=== PATIENT | male | born 1975 | race Caucasian/White ===

== ENCOUNTER 2023-03-16 16:28 | Emergency (ER) | payer OTHER, SELFPAY ==
[2023-03-16] VITALS (10 sets, daily range): BP systolic 134; BP diastolic 86; PULSE 47–61; RESP 14–22; TEMP 36.2; O2SAT 80–100; BMI 23.7
--- NOTE | 2023-03-16 16:40 | ECG_ITS ---
[facility] Test Date: 2023-03-16 Pat Name: RADHA WATSON Department: Room: - Gender: Male [employer] Supervisor: : 1975 Requested By: Order Number: [id number] Reading MD: ARLET ACEVEDO Measurements Intervals [place] Rate: 52 P: 79 [place]: 140 QRS: 78 QRSD: 108 T: 75 QT: 420 QTc: 400 Interpretive Statements 1100 Sinus rhythm 2440 Incomplete right bundle branch block 9130 borderline ECG No previous ECG available for comparison Electronically Signed On 03-17-2023 18:13:17 EDT by ARLET ACEVEDO
--- NOTE | 2023-03-16 16:41 | ED_ITS ---
HPI - Chest Pain General Chief Complaint: Chest Pain Stated Complaint: CHEST PAIN Time Seen by Provider: 03/16/23 16:36 Source: patient and family Mode of arrival: walk-in Limitations: no limitations History of Present Illness HPI narrative: patient is a 48-year-old male who presents to the emergency department for the evaluation of chest pain. Patient states he had chest pain approximately three weeks ago which resolved. He states the pain returned five days ago and has been coming and going since then. He has no active chest pain at this time. He states since the pain began, he has felt exertional dyspnea but has not had any fevers, cough, congestion. He has had no abdominal pain, nausea, vomiting. Steve denies any peripheral edema. He has never been a smoker. He is an active runner. He denies any family history of coronary artery disease. He takes no medications for high cholesterol, diabetes or hypertension. He has no history of heart or lung problems other than childhood asthma which he does not take any medications for now. when pain is present is located in the right anterior chest. Risk Factors Coronary artery disease risk factors: none Related Data Home Medications Medication Instructions Recorded Confirmed No Known Home Medications 03/16/23 03/16/23 Allergies Allergy/AdvReac Type Severity Reaction Status Date / Time No Known Drug Allergies Allergy Verified 03/16/23 16:34 Review of Systems ROS Constitutional Denies: fever or chills Ears, nose, mouth, and throat Denies: throat pain or neck pain Cardiovascular Reports: chest pain Respiratory Reports: shortness of breath; Denies: cough Gastrointestinal Denies: abdominal pain, nausea or vomiting Musculoskeletal Denies: back pain or neck pain Integumentary/Breast Denies: rash Neurological Denies: headache Endocrine Denies: excessive urination Hematologic/Lymphatic Denies: easy bruising PFSH PFS Social History Smoking status: Never smoker Exam Narrative Exam Narrative: Gen.: Awake, alert, in no distress Head: Normocephalic, atraumatic ENT: Moist mucous membranes Respiratory: No respiratory distress, lungs clear bilaterally Cardio: Regular rate and rhythm Gastrointestinal: Abdomen is soft, nondistended and nontender to palpation Extremities: Moves extremities equally, no injuries noted Psych: Normal mood and affect Neuro: No focal neuro deficit Skin: Warm, dry, intact Constitutional Vital Signs, click to edit/add: Last Vital Signs Temp 97.2 F L 03/16/23 16:32 Pulse 61 03/16/23 16:32 Resp 16 03/16/23 16:32 BP 134/86 03/16/23 16:32 Pulse Ox 99 03/16/23 16:48 O2 Del Method Room Air 03/16/23 16:48 Course Vital Signs Vital signs: Vital Signs Temperature 97.2 F L 03/16/23 16:32 Pulse Rate 61 03/16/23 16:32 Respiratory Rate 16 03/16/23 16:32 Blood Pressure 134/86 03/16/23 16:32 Pulse Oximetry 100 03/16/23 16:32 Oxygen Delivery Method Room Air 03/16/23 16:32 Temperature 97.2 F L 03/16/23 16:32 Pulse Rate 61 03/16/23 16:32 Respiratory Rate 16 03/16/23 16:32 Blood Pressure 134/86 03/16/23 16:32 Pulse Oximetry 99 03/16/23 16:48 Oxygen Delivery Method Room Air 03/16/23 16:48 MDM - Chest Pain MDM Narrative Medical decision making narrative: patient was medicated with aspirin as a precaution although he has no active chest pain, shortness of breath or other focal medical complaints in the Emergency Room. EKG with no acute changes and lab studies including troponin, BNP and d-dimer are within normal limits. Chest x-ray shows no evidence of acute cardiopulmonary changes. Heart score is a one based on the patient's risk factor of his age, he has no other cardiac risk factors. He was noted to have int ermittent bradycardia in the Emergency Room but he has an active runner, no other associated symptoms with the bradycardia. He will be referred to new primary care provider for further evaluation and treatment. Return to the Emergency Room if symptoms change or worsen. Medical Records Data Attestation: I reviewed the patient's medical records. Lab Data Attestation: I reviewed the patient's lab results. Labs: Lab Results 03/16/23 Range/Units 16:40 WBC 7.8 (4.0-11.0) 10^3/uL RBC 5.31 (4.70-6.10) 10^6/uL Hgb 15.4 (14.0-18.0) g/dL Hct 44.9 (42.0-54.0) % MCV 84.6 (80.0-94.0) fL MCH 29.0 (25.9-34.0) pg MCHC 34.3 (29.9-35.2) g/dL RDW 12.0 (11.0-15.0) % Plt Count 160 (150-450) 10^3/uL MPV 10.9 (9.5-13.5) fL Neut % (Auto) 69.1 (43.0-75.0) % Lymph % (Auto) 22.4 (20.5-60.0) % [place] % (Auto) 6.9 (1.7-12.0) % Eos % (Auto) 0.8 L (0.9-7.0) % Baso % (Auto) 0.5 (0.2-2.0) % Neut # (Auto) 5.4 (1.4-6.5) 10^3/uL Lymph # (Auto) 1.7 (1.2-3.8) 10^3/uL [place] # (Auto) 0.5 (0.3-0.8) 10^3/uL Eos # (Auto) 0.1 (0.0-0.7) 10^3/uL Baso # (Auto) 0.0 (0.0-0.1) 10^3/uL Abs Immat Gran (auto) 0.02 (0.00-0.03) 10^3/uL Imm/Tot Granulo (auto) 0.3 (0.0-0.5) % PT 11.0 (9.0-11.6) sec INR 1.04 APTT 28.9 (22.3-36.2) sec D-Dimer 0.30 (<=0.59) mg/L FEU Sodium 139 (136-145) mmol/L Potassium 3.5 (3.5-5.1) mmol/L Chloride 104 (98-107) mmol/L Carbon Dioxide 31.7 (21.0-32.0) mmol/L Anion Gap 6.8 BUN 20.0 H (7.0-18.0) mg/dL Creatinine 1.15 (0.70-1.30) mg/dL Est GFR ( Amer) >60 (>=60) Est GFR (Non-Af Amer) >60 (>=60) BUN/Creatinine Ratio 17.4 Glucose 95 (74-106) mg/dL Calcium 8.9 (8.5-10.1) mg/dL Total Bilirubin 0.8 (0.2-1.0) mg/dL AST 21 (15-37) U/L ALT 34 (16-63) U/L Alkaline Phosphatase 66 (46-116) U/L Troponin I High Sens 6.8 (4.0-76.1) pg/mL NT-Pro-B Natriuret Pep 35.0 (<=450.0) pg/mL Total Protein 7.1 (6.4-8.2) g/dL Albumin 4.1 (3.4-5.0) g/dL Globulin 3.0 g/dL Albumin/Globulin Ratio 1.4 Lipase 83.0 (73.0-393.0) U/L Imaging Data Chest x-ray: Attestation: I have reviewed the pertinent imaging results. Radiologist's impression: Procedure: XR chest 1V TITLE: XR chest 1V COMPARISON: None. CLINICAL HISTORY: Chest pain TECHNIQUE: One view. FINDINGS: There is a normal cardiac and mediastinal contour. The pulmonary vascular pattern is normal. The lungs are clear and the pleural margins are sharp. There are no significant skeletal abnormalities. IMPRESSION: NO ACUTE RADIOGRAPHIC FINDINGS ECG Data Attestation: I personally reviewed and interpreted this ECG as follows: (normal sinus rhythm at a rate of fifty-two, incomplete right bundle-branch block with no acute ST elevation or ectopy. EKG reviewed by attending physician) ECG interpretation date: 03/16/23 ECG interpretation time: 16:43 Heart Score History: Slightly/Non-Suspicious ECG: Normal Age: >45-<65 years Risk Factors: No Risk Factors Troponin: <Normal Limit Total Heart Score Recommendations & Risks:: 1 Discharge Plan Discharge Chief Complaint: Chest Pain Clinical Impression: Chest pain Patient Disposition: Home, Self-Care Time of Disposition Decision: 17:48 Condition: Good Prescriptions / Home Meds: No Action No Known Home Medications Instructions: Chest Pain (ED) Stand Alone Forms: Portal Instructions Referrals: Physician,Non-Staff, MD [Primary Care Provider] - 1 week
[2023-03-16] MEDS: ASPIRIN 81 MG TAB.CHEW 162 MG PO (16:50)
[2023-03-16 16:51] LABS: Basophils Percent Auto 0.5 % (0.2-2.0); Eosinophils Absolute Auto 0.1 10^3/uL (0.0-0.7); Eosinophils Percent Auto 0.8 % (0.9-7.0); Hematocrit 44.9 % (42.0-54.0); Hemoglobin 15.4 g/dL (14.0-18.0); Immature Granulocytes Abs Auto 0.02 10^3/uL (0.00-0.03); Immature Granulocytes Pct Auto 0.3 % (0.0-0.5); Lymphocytes Absolute Auto 1.7 10^3/uL (1.2-3.8); Lymphocytes Percent Auto 22.4 % (20.5-60.0); Mean Corpuscular HGB Conc 34.3 g/dL (29.9-35.2); Mean Corpuscular Volume 84.6 fL (80.0-94.0); Mean Platelet Volume 10.9 fL (9.5-13.5); Monocytes Absolute Auto 0.5 10^3/uL (0.3-0.8); Monocytes Percent Auto 6.9 % (1.7-12.0); Neutrophils Absolute Auto 5.4 10^3/uL (1.4-6.5); Neutrophils Percent Auto 69.1 % (43.0-75.0); Platelet Count 160 10^3/uL (150-450); Red Blood Count 5.31 10^6/uL (4.70-6.10); White Blood Count 7.8 10^3/uL (4.0-11.0)
[2023-03-16 17:06] LABS: INR 1.04; Partial Thromboplastin Time 28.9 sec (22.3-36.2)
--- NOTE | 2023-03-16 17:13 | XR_ITS ---
[address] [address] Patient Name: RADHA WATSON MRN: [id number] date: 1975 Sex: M Assigned Patient Location: ER Current Patient Location: ER Accession/Order Number: [id number] Exam Date: 03/16/2023 17:25 Report Date: 03/16/2023 17:42 At the request of: JOSSE CHAUDHRY Procedure: XR chest 1V TITLE: XR chest 1V COMPARISON: None. CLINICAL HISTORY: Chest pain TECHNIQUE: One view. FINDINGS: There is a normal cardiac and mediastinal contour. The pulmonary vascular pattern is normal. The lungs are clear and the pleural margins are sharp. There are no significant skeletal abnormalities. XR/XR chest 1V IMPRESSION: NO ACUTE RADIOGRAPHIC FINDINGS Electronically authenticated by: LEIF MOHAN Date: 03/16/2023 17:42
[2023-03-16 17:14] LABS: Alanine Aminotransferase 34 U/L (16-63); Albumin Globulin Ratio 1.4; Albumin Level 4.1 g/dL (3.4-5.0); Alkaline Phosphatase 66 U/L (46-116); Anion Gap 6.8; Aspartate Amino Transferase 21 U/L (15-37); BUN Creatinine Ratio 17.4; Bilirubin Total 0.8 mg/dL (0.2-1.0); Calcium 8.9 mg/dL (8.5-10.1); Carbon Dioxide 31.7 mmol/L (21.0-32.0); Chloride 104 mmol/L (98-107); Estimated GFR (African America >60 (>=60); Estimated GFR (Non-African Ame >60 (>=60); Glucose 95 mg/dL (74-106); Potassium 3.5 mmol/L (3.5-5.1); Sodium 139 mmol/L (136-145); Total Protein 7.1 g/dL (6.4-8.2); Troponin I High Sensitivity 6.8 pg/mL (4.0-76.1)
== END 2023-03-16 18:06 | disposition home or self-care (01) ==
PROVIDERS: Physician Assistant; Emergency Provider Emergency Medicine Emergency Medical Services
DX: R07.9 Chest pain, unspecified (principal)
CPT/HCPCS: 36415; 71045; 80053; 83690; 83880; 84484; 85025; 85378; 85610; 85730; 93005; 99285

== ENCOUNTER 2023-05-21 07:32 | Outpatient (OUT) | payer OTHER, SELFPAY ==
--- NOTE | 2023-05-21 17:41 | PM.STRESS ---
Stress Test Stress Test Allergies Allergy/AdvReac Type Severity Reaction Status Date / Time No Known Drug Allergies Allergy Verified 03/16/23 16:34 Requesting physician: KIERAN MILLIGAN Stress Test: Requesting physician: KIERAN MILLIGAN Procedure: Exercise stress test General Information: Reason for Stress Test: Chest pain Cardiac History and Risk Factors: No personal or family risk factors reported Resting 12 - Lead Electrocardiogram: Rate & rhythm: Sinus bradycardia at a rate of 49. [place]: Normal T-waves: Flattened/inverted in aVL ST-segments: Normal orientation Incomplete right bundle branch block Stress Test: Protocol: Frank protocol was followed. Exercise capacity: Excellent exercise capacity. Total exercise time of 10minutes 15 seconds reached Frank stage 4 at 4.2MPH, 16% grade, & 13.4 METs. Blood pressure: Initial: 112/78, Maximum: 150/82, Recovery: 128/74 Rate & rhythm: Patient remained in sinus rhythm during the exercise and recovery portions of the study.? The maximum heart rate was 176, which was 102% of the maximum predicted heart rate 172. Occasional PACs noted. ST-segments & T-waves: The patient developed up to 2mm ST segment depression and downsloping in all 3 inferior leads as well as lateral V3-V6 leads. They resolved during rest. Patient response/symptoms: There were no symptoms similar to the chief complaint. Interpretation: This is an abnormal exercise stress test based on ST segment downsloping and up to 2mm depression in the inferolateral leads. Henderson Treadmill Score is 0.3 which is a moderate risk. Clinical correlation required.
== END 2023-05-21 07:33 | disposition home or self-care (01) ==
LOC: CARD 07:33
PROVIDERS: PCP Family Medicine; Visit Provider Family Medicine
DX: R07.9 Chest pain, unspecified (principal)
CPT/HCPCS: 93017

== ENCOUNTER 2023-06-14 07:32 | Outpatient (OUT) | payer OTHER, SELFPAY ==
--- NOTE | 2023-06-14 08:10 | CA_ITS ---
Patient Name: RADHA WATSON MR#: [id number] : 1975 Exam Date: 06/14/2023 Ordering Doctor: DR BOBBI JUAREZ M.D. ECHOCARDIOGRAM REPORT PROCEDURE: CA ECHO DOPPLER COMPLETE INDICATIONS: Chest pain COMPARISON: None. DESCRIPTION: COMPLETE ECHOCARDIOGRAM Real-time transthoracic echocardiography with 2D, M-mode, spectral and color flow Doppler performed. QUALITY: Technical quality was good. LEFT VENTRICLE: Normal chamber size. Normal left ventricular wall thickness. LV EF: Global left ventricular systolic function is normal; visually estimated ejection fraction is 55-60%. No obvious wall motion abnormalities. DIASTOLIC: Normal diastolic function. ATRIAL SEPTUM: Visually appears intact. LEFT ATRIUM: Normal chamber size. RIGHT ATRIUM: Normal chamber size. RIGHT VENTRICLE: Normal chamber size. Normal right ventricular systolic function. TRICUSPID VALVE: Normal mobility and thickness. No stenosis with trivial regurgitation. No evidence of pulmonary hypertension .RVSP 27 mmHg MITRAL VALVE: Normal mobility and thickness. No evidence of mitral valve stenosis. There is no mitral annular calcification. Trivial mitral regurgitation. AORTIC VALVE: Normal trileaflet appearance. No visible sclerosis. Normal leaflet mobility. No evidence of aortic valve stenosis. No aortic regurgitation. AORTIC ROOT: Normal in size. PULMONIC VALVE: Normal thickness and mobility. No stenosis. Trivial regurgitation. PERICARDIUM: No evidence of pericardial effusion. IVC: Collapses with inspirations. IVC is normal in size. CONCLUSION: 1. Global left ventricular systolic function is normal; visually estimated ejection fraction is 55 to 60% 2. The right ventricle is normal size and systolic function. 3. Normal diastolic function 4. No significant valvular abnormalities Adult Echocardiography Procedure Report Left Ventricle LVEDD (3.7 - 5.6 cm): 5.18 cm LVESD (2.2 - 4.0 cm): 2.96 cm LVIVS thickness (0.6 - 1.2 cm): 0.93 cm LVPW thickness (0.5 - 1.0 cm): 0.81 cm e': 0.15 m/s E - e': 4.36 LVOT Max Gradient: 2.13 mm[Hg] LVOT Area (cm2): 0.73 m/s Peak Velocity (LVOT): 0.73 m/s Mean Velocity (LVOT): 0.50 m/s LVOT Diameter 2.75 cm Left Atrium LA Volume Index (2D A2C): 38.61 ml/m2 Left Atrium Systolic Dimension: 3.16 cm Mitral Valve MV E to A Ratio: 1.62 Mitral Valve A-Wave Peak Velocity: 0.39 m/s Mitral Valve E-Wave Peak Velocity: 0.64 m/s Right Ventricle Aorta AO Root Diam: 3.59 cm Aortic Valve AoV Area (Peak Ashwin): 4.69 cm2, 4.69 cm2 AoV Area (VTI): 4.48 cm2, 4.48 cm2 Peak Velocity(Antegrade Flow): 0.92 m/s Peak Gradient(Antegrade Flow): 3.38 mm[Hg] Mean Velocity(Antegrade Flow): 0.66 m/s Mean Gradient(Antegrade Flow): 1.93 mm[Hg] Velocity Time Integral: 22.63 cm Tricuspid Valve Peak Velocity (Regurgitant Flow): 2.43 m/s Pulmonic Valve Peak Velocity: 1.01 m/s Peak Gradient: 4.09 mm[Hg] Right Atrium Right Atrium Systolic Pressure: 56.67 ml, 56.67 ml Dictated by: Bobbi Juarez M.D. on 06/18/2023 at 15:45 Approved by: Bobbi Juarez M.D. on 06/18/2023 at 15:49
== END 2023-06-14 07:33 | disposition home or self-care (01) ==
LOC: CARD 07:33
PROVIDERS: PCP Family Medicine; Visit Provider Internal Medicine Interventional Cardiology
DX: R07.9 Chest pain, unspecified (principal); Z82.49 Family history of ischemic heart disease and other diseases of the circulatory system
CPT/HCPCS: 93306

== ENCOUNTER 2025-06-04 07:30 | Outpatient (OUT) | payer OTHER, SELFPAY ==
--- OUTSIDE RECORDS SUMMARY | 2025-06-04 07:38 | XMS_ITS | Clinical Summary ---
Author Organization [facility] Address [address] [place] [address] Care Team Providers Care Special Education Paraeducator Name Role Phone Mekhi Ruiz MD Primary Care Provider Allergies No known active allergies Medications MedicationSigDispense QuantityRefillsLast FilledStart DateEnd DateStatus rosuvastatin (Crestor) 40 mg tablet Indications:Coronary artery disease due to lipid rich plaqueTake 1 tablet (40 mg) by mouth in the morning. 30 tablet 11007/29/2023ctive Additional Information Patient not taking.Reason: Other, Reported on 01/05/2025 aspirin 81 mg EC tablet Take 81 mg by mouth in the morning.Active Active Problems ProblemNoted DateDiagnosed PjcuYteefh59hest pain08/12/2023 08/12/2023old yyajlrzdkcs61Family hx of colon cancer requiring screening fqjiqkfrwht19Hypospadias in male08/12/2023 08/12/2023hysical exam Family History Medical HistoryRelationNameCommentsValvular heart diseaseBrotherWolff Parkinson White syndromeBrotherRelationNameStatusCommentsBrotherFatherDeceasedMotherAlive Social History Tobacco UseTypesPacks/DayYears UsedDateSmoking Tobacco: NeverSmokeless Tobacco: Never Tobacco Cessation:Counseling Given: Not Answered Alcohol UseStandard Drinks/WeekCommentsYes0 (1 standard drink = 0.6 oz pure alcohol)occasionalUT Safety & EnvironmentAnswerDate RecordedFear of Current or Ex-PartnerNot on file09/13/2023Emotionally AbusedNot on file09/13/2023hysically AbusedNot on file09/13/2023Sexually AbusedNot on file09/13/2023hysically or Sexually AbusedNot on file09/13/2023Sex and Gender InformationValueDate Recorded Sex Assigned at BirthNot on fileLegal DaqDbzd76/07/2023 12:29 PM ESTGender IdentityNot on fileSexual OrientationNot on file Last Filed Vital Signs Vital SignReadingTime TakenCommentsBlood Gyhckiwy058/7106 9:30 AM EDT Lovgd0567 9:30 AM EDTTemperature--Respiratory Rate--Oxygen Saturation 100%01/05/2025 9:30 AM EDTInhaled Oxygen Concentration--Husrlg36.2 kg (168 lb) 01/05/2025 9:30 AM RVYRrlarp114.8 cm (5' 10 )01/05/2025 9:30 AM EDTBody Mass Index24.1106 9:30 AM EDT Plan of Treatment Health MaintenanceDue DateLast DoneCommentsCT Wfsnluxubnyp1975Colonoscopy 1975Colorectal Cancer Gkawmykwi1975FIT-DNA1975FIT1975 FOBT1975 5202Gwumhlvsfnojg1975Depression Bgwztdstu91/09/1987Hepatitis B Vaccines (1 of 3 - 19+ 3-dose series)1994Pneumococcal Vaccine: Pediatrics (0 to 5 Years) and At-Risk Patients (6 to 64 Years) (1 of 2 - PCV)1994 Adult Apzcrun2101/27/1997Zoster Vaccines (1 of 2)2025OVID-19 Vaccine (1 - 2024- season)2025Influenza Vaccine (#1)2025HIB VaccinesAged OutNo longer eligible based on patient's age to complete this topicHPV VaccinesAged OutNo longer eligible based on patient's age to complete this topicIPV Vaccines Aged OutNo longer eligible based on patient's age to complete this topic Meningococcal B VaccineAged OutNo longer eligible based on patient's age to complete this topicMeningococcal VaccineAged OutNo longer eligible based on patient's age to complete this topicRotavirus VaccinesAged OutNo longer eligible based on patient's age to complete [place] [address] Care Teams Team MemberRelationshipSpecialtyStart DateEnd Date Mekhi Ruiz MD [address] [place] [id number] PCP - GeneralFamily Dknszpnl51/16/23
--- OUTSIDE RECORDS SUMMARY | 2025-06-04 07:38 | XMS_ITS | Clinical Summary ---
Author Organization [facility] Address [address] [place] [address] Care Team Providers Care Leather Goods Maker Name Role Phone Unavailable Primary Care Provider Unavailabl e Social History Tobacco UseTypesPacks/DayYears UsedDateSmoking Tobacco: Never AssessedSex and Gender InformationValueDate RecordedSex Assigned at BirthNot on fileLegal Sex Male10/03/2022 11:14 PM EDTGender IdentityNot on fileSexual OrientationNot on file Last Filed Vital Signs Vital SignReadingTime TakenCommentsBlood Pressure--Pulse--Temperature-- Respiratory Rate--Oxygen Saturation--Inhaled Oxygen Concentration--Iihyto63.6 kg (160 lb)12/23/2020 12:00 PM CHQMiawvo779.8 cm (5' 10 )12/23/2020 12:00 PM EDT Body Mass Index22.9612/23/2020 12:00 PM EDT Plan of Treatment Not on file Insurance
[2025-06-04 08:45] LABS: Alanine Aminotransferase 28 U/L (16-63); Albumin Globulin Ratio 1.3; Albumin Level 4.2 g/dL (3.4-5.0); Alkaline Phosphatase 68 U/L (46-116); Aspartate Amino Transferase 24 U/L (15-37); Cholesterol 180 mg/dL (<=200); Globulin 3.3 g/dL; HDL Cholesterol 47 mg/dL (40-60); Total Protein 7.5 g/dL (6.4-8.2); Triglycerides 44 mg/dL (<=150); VLDL CHOLESTEROL 8.8 mg/dL
== END 2025-06-04 07:31 | disposition home or self-care (01) ==
LOC: LAB 07:32
PROVIDERS: Visit Provider Internal Medicine Interventional Cardiology
DX: I25.10 Atherosclerotic heart disease of native coronary artery without angina pectoris (principal)
CPT/HCPCS: 36415; 80061; 80076